=== PATIENT | female | born 1955 | race Caucasian/White ===

== ENCOUNTER → 2021-09-17 | Outpatient (CLI) | payer MEDICARE, OTHER | LOC: MC.RAD 11:09 | DX: Z12.31 Encounter for screening mammogram for malignant neoplasm of breast (principal) ==

== ENCOUNTER → 2023-06-24 | Outpatient (CLI) | payer MEDICARE, OTHER | LOC: MC.RAD 10:32 | DX: Z12.31 Encounter for screening mammogram for malignant neoplasm of breast (principal) ==

== ENCOUNTER 2024-01-22 12:40 | Emergency (ER) | payer MEDICARE, OTHER ==
[~2024-01-22] VITALS: Ht 175.3 cm; Wt 106.4 kg
[2024-01-22] MEDS ORDERED: Morphine 10 MG/ML VIAL IM ONE (13:00)
[2024-01-22] MEDS ORDERED: Metoprolol Tartrate 5 MG/5 ML VIAL IV ONE (13:30)
[2024-01-22] MEDS ORDERED: NS 500 ML IV ONE (13:30)
[2024-01-22 13:48] LABS: BASO # 0.1 K/mm3 (0.0-0.2); BASO % 1.1 % (0.0-2.0); EOS # 0.2 K/mm3 (0.0-0.7); EOS % 2.7 % (0.0-4.0); GRAN # 4.6 K/mm3 (1.4-6.5); GRAN % 62.4 % (42.2-75.2); HEMATOCRIT 39.9 % (37.0-47.0); HEMOGLOBIN 13.6 g/dl (12.5-16.0); MEAN CELL VOLUME 86 fl (80.0-100.0); MEAN CORPUSCULAR HEMOGLOBIN 29 pg (27-31); MEAN CORPUSCULAR HGB CONC 34 g/dl (33.0-37.0); MEAN PLATELET VOLUME 8.9 fl (7.4-10.4); MONO # 0.4 K/mm3 (0.1-0.6); MONO % 5.8 % (1.7-9.3); PLATELET COUNT 289 K/mm3 (130-400); RED BLOOD COUNT 4.62 M/mm3 (4.10-5.30); REDCELL DISTRIBUTION WIDTH-CV 12.9 % (11.5-14.5)
[2024-01-22 14:07] LABS: ALANINE AMINOTRANSFERASE 39 U/L (0-55); ALBUMIN 3.8 g/dL (3.4-4.8); ALKALINE PHOSPHATASE 74 U/L (40-150); ANION GAP 11 mmol/L (7-16); AST,SGOT 29 U/L (5-34); BILIRUBIN,TOTAL 0.4 mg/dL (0.2-1.2); BLOOD UREA NITROGEN 31 mg/dL (10-20); CALCIUM 9.9 mg/dL (8.4-10.2); CHLORIDE 111 mEq/L (98-107); CREATININE, serum 1.31 mg/dL (0.57-1.11); GLUCOSE 153 mg/dL (70-99); MAGNESIUM 1.9 mg/dL (1.6-2.6); POTASSIUM 4.2 mEq/L (3.5-4.5); SODIUM 139 mEq/L (136-145)
[2024-01-22 14:27] LABS: TROPONIN-I < 0.010 ng/mL (0.00-0.033); TSH w REFLEX 2.491 uIU/mL (0.350-4.940)
[2024-01-22] MEDS ORDERED: NORCO 325 MG-51 TAB PO (16:00)
[2024-01-22] MEDS ORDERED: TOPROL XL 50MG50 MG PO (16:00)
[2024-01-22 16:39] VITALS: BP 123/81; PULSE 129
== END 2024-01-22 16:47 | disposition home or self-care (01) ==
LOC: COL.ER 12:40
PROVIDERS: Emergency Medicine
DX: M54.42 Lumbago with sciatica, left side (principal); I47.10 Supraventricular tachycardia, unspecified
CPT/HCPCS: J2270; J7040

== ENCOUNTER 2024-01-23 23:15 | Emergency (ER) | payer MEDICARE, OTHER ==
[~2024-01-23] VITALS: Ht 175.3 cm; Wt 106.4 kg
[~2024-01-23 23:15] MED LIST: NORCO 325 MG-51 TAB PO; TOPROL XL 50MG50 MG PO
[2024-01-23 23:20] VITALS: TEMP 97.7
[2024-01-24 00:24] LABS: BASO # 0.1 K/mm3 (0.0-0.2); BASO % 1.1 % (0.0-2.0); EOS # 0.3 K/mm3 (0.0-0.7); EOS % 3.7 % (0.0-4.0); GRAN % 49.4 % (42.2-75.2); HEMATOCRIT 40.3 % (37.0-47.0); HEMOGLOBIN 13.6 g/dl (12.5-16.0); LYMPH # 3.2 K/mm3 (1.2-3.4); LYMPH % 38.7 % (20.0-51.0); MEAN CELL VOLUME 88 fl (80.0-100.0); MEAN CORPUSCULAR HEMOGLOBIN 30 pg (27-31); MEAN CORPUSCULAR HGB CONC 34 g/dl (33.0-37.0); MEAN PLATELET VOLUME 9.1 fl (7.4-10.4); MONO # 0.5 K/mm3 (0.1-0.6); MONO % 6.1 % (1.7-9.3); PLATELET COUNT 268 K/mm3 (130-400); RED BLOOD COUNT 4.56 M/mm3 (4.10-5.30); REDCELL DISTRIBUTION WIDTH-CV 12.9 % (11.5-14.5)
[2024-01-24 00:28] LABS: BILIRUBIN,TOTAL 0.3 mg/dL (0.2-1.2); CALCIUM 9.9 mg/dL (8.4-10.2); CREATININE, serum 1.3 mg/dL (0.57-1.11); MAGNESIUM 2.2 mg/dL (1.6-2.6); POTASSIUM 4.2 mEq/L (3.5-4.5); TOTAL PROTEIN 7.2 g/dl (6.2-8.1)
[2024-01-24 00:34] VITALS: BP 135/59; PULSE 67
[2024-01-24 00:42] LABS: ALBUMIN 3.9 g/dL (3.4-4.8)
== END 2024-01-24 00:30 | disposition left against medical advice (07) ==
LOC: COL.ER 23:15
PROVIDERS: Emergency Medicine
DX: I48.91 Unspecified atrial fibrillation (principal); Z79.899 Other long term (current) drug therapy